=== PATIENT | male | born 1950 | race Caucasian/White ===

== ENCOUNTER 2016-12-24 07:31 | Inpatient (IN) | payer OTHER ==
--- NOTE | 2016-12-24 08:04 | CPEKG ---
Heart Rate: 115 RR Interval: 522 P-R Interval: 180 QRSD Interval: 82 QT Interval: 288 QTC Interval: 399 P [facility]: 46 QRS [facility]: 32 T Wave [facility]: 6 EKG Severity - BORDERLINE ECG - EKG Impression: SINUS TACHYCARDIA EKG Impression: CONSIDER INFERIOR INFARCT EKG Impression: BORDERLINE R WAVE PROGRESSION, ANTERIOR LEADS Electronically Signed By: Tevin Khan 24-Dec-2016 08:26:45
[2016-12-24] MEDS ORDERED: NS 1,000 ML IV ONE ×2 (08:09→09:25)
[2016-12-24] MEDS ORDERED: ACETAMINOPHEN 325 MG TAB PO ONE (08:15)
[2016-12-24] MEDS ORDERED: LETS SOLN TOPICAL 1 EA SYR TP ONE (08:16)
--- NOTE | 2016-12-24 08:21 | UCPHY ---
H & P Patient Type: Established Chief Complaint Nursing Narrative: Fever 3 days, falls yesterday and this am. Dehydration Time Seen by Provider: 12/24/16 07:53 HPI/ROS: This pt. presents with illness for 3 days with fevers, mild dry cough mild nasal congestion. He has also had chills. He was seen as per family practitioner's office on Thursday with the symptoms and tested negative for influenza. He was then given influenza immunization. He reports ongoing symptoms and over the past 24 hours his family notes that he has been intermittently mildly confused but then seems to improve after he drinks fluids. He has been unsteady on his feet and has had 4 falls over the past 24 hours. The family has not noticed any loss of consciousness during these falls. This morning at 5:00 a.m. while in his bathroom he again fell and struck his forehead with a laceration to his forehead. He reports associated fatigue. ROS: No other constitutional symptoms besides what is mentioned in HPI. HEENT: No sore throat. No ear pain. Neuro: Mild headache currently and intermittently over the past 3 days similar to previous headaches generalized location. No LOC with the fall. He reports feeling lightheaded prior to the fall is unclear if he lost his balance or had a brief syncopal episode. No bowel or bladder incontinence. No focal numbness tingling weakness. Pulmonary: No pleuritic pain. He reports mild shortness of breath. Cardiovascular: Has not noticed any heart palpitations or chest pain. GI: No belly pain. No nausea or vomiting. No diarrhea. : Mild dysuria. He thinks that is attributable to dehydration. No testicular pain or swelling. Musculoskeletal: No back pain or extremity injuries. Endocrine: He checks his blood glucose about once a week. He does remember what which day he last checked but was 115 recently. 10 point ROS is otherwise negative. Source: Patient, Family Exam Limitations: No limitations - Medical/Surgical History PMH: Hypertension Gmx-yixkdcc-ykyoyiket diabetes Hypercholesterolemia Hx Diabetes: Yes Other PMH: ortho/hernia/htn/hyper lipids - Family History Significant Family History: No pertinent family hx - Social History Smoking Status: Never smoked Alcohol Use: Occasionally Drug Use: None Additional Social History: The patient smokes cigars once or twice a week. 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 Vital signs are notable for fever to 38 centigrade, pulse of 114 respiratory rate around 20, 91% on room air blood pressure 103/73 General Appearance: Alert, no distress. Eyes: Pupils equal and round no pallor or injection. ENT,: Nose: Mild discharge bilaterally no tenderness. He has laceration to the forehead 3 cm in [id number]-[id number]. No foreign bodies present. Ears: External canals and TMs clear bilaterally. Mouth: Mucous membranes moist. No dental trauma. No tongue bite/intraoral lacerations Respiratory: Diminished breath sounds at the bases. No rales or rhonchi appreciated. No increased work of breathing. Cardiovascular: Tachycardic with no murmur gallop or rub Gastrointestinal: Abdomen is soft and nontender, no masses, bowel sounds normal. : No testicular tenderness Neurological: GCS of 15. No focal sensory or motor deficits are noted. Skin: Warm and dry, no rashes. Musculoskeletal: Neck is supple nontender. Extremities are symmetrical, full range of motion. Psychiatric: Mood and affect are normal. DIFFERENTIAL DIAGNOSIS: After history and physical exam differential diagnosis was considered for influenza, viral syndrome, pneumonia, dehydration, sepsis, mi , closed head injury, concussion Constitutional: Initial Vital Signs Temperature (C) 38.1 C 12/24/16 08:04 Heart Rate 114 H 12/24/16 08:04 Respiratory Rate 20 12/24/16 08:04 Blood Pressure 103/73 12/24/16 08:04 O2 Sat (%) 88 L 12/24/16 08:04 O2 Delivery Mode Nasal Cannula O2 (L/minute) 3.5 Allergies/Adverse Reactions: No Allergies [NKDA] Allergy (Verified 12/24/16 08:11) Home Medications: Medication Instructions Recorded Ambien Cr 10/09/14 CYCLOBENZAPRINE HCL [Flexeril] 5 mg PO TIDPRN PRN #15 tab 10/09/14 Lisinopril 10/09/14 Metformin HCl 10/09/14 Simvastatin 10/09/14 ASPIRIN 12/24/16 Fish Oil 12/24/16 ONGLYZA 12/24/16 Medical Decision Making - Diagnostics EKG Interpretation: 12 lead EKG performed at 801 reveals sinus tachycardia 115 Intervals: Normal throughout Vian: Normal throughout ST segments: Normal throughout Overall assessment sinus tachycardia with borderline anterior R-wave progression when compared to prior EKG dated 09/17/2010 no significant interval change by my interpretation. Imaging: Chest x-ray: Basilar atelectasis versus infiltrate on lateral view. Otherwise normal CT brain no contrast is normal per Dr. Esquivel-radiologist Procedures: The wound is 2.7 cm just above the eyebrow. Subcutaneous tissues evident but no deeper structures are injured. There is no underlying bony step-off The wound was copiously irrigated with saline. The wound was explored for foreign bodies and none were found. The wound was prepped and draped in the normal sterile fashion. The wound was anesthetized using let solution followed by 1% plain lidocaine mixed 50 50 with 0.5% Marcaine with good effect-4 mm. The edges were reapproximated using 5 0 Ethilon-11 running sutures with good hemostasis and cosmesis. The patient tolerated the procedure well. There were no complications. ED Course/Re-evaluation: IV normal saline bolus, monitor, blood cultures Patient presents with findings consistent with sepsis but responded well to normal saline bolus. Never hypotensive. She was ceftriaxone IV for urinary source. He may have early pneumonia as well versus atelectasis. He had associated waxing waning mild delirium by family's description over the past day or 2 and multiple falls complicating his course. I think the falls are secondary to orthostatic changes. He has had decreased p.o. intake as well over the past 48 hours by family's description. Venous lactate is normal. He does not have findings consistent with septic shock. After his marked clinical improvement with initial treatment I think he is safe for admission to the floor on O2 sat monitor. I think that his borderline hypoxia is attributable to his morbid obesity with obstructive component and bronchitis versus early pneumonia. He may have had a concussion from his fall. Ruled out intracranial injury with a negative head CT. He has a minor head injury here with a GCS of 15. No clinical evidence of neck injury or other associated injuries from his falls I spoke with mid-level with hospitalist group the patient will be admitted to Dr. Hernandez at [facility] I counseled patient and family regarding test results, diagnosis and plan for admission. The patient was initially hesitant to proceed with admission but is cooperative. - Data Points Laboratory Results: Laboratory Results 12/24/16 08:30 12/24/16 08:30 12/24/16 12/24/16 12/24/16 09:55 08:39 08:30 WBC RBC Hgb POC Hgb 17.7 gm/dL H gm/dL (14.5-17.3) Hct POC Hct 52 % H % (42.8-50.6) MCV MCH MCHC RDW Plt Count MPV Neut % (Auto) Lymph % (Auto) [place] % (Auto) Eos % (Auto) Baso % (Auto) Nucleat RBC Rel Count Absolute Neuts (auto) Absolute Lymphs (auto) Absolute Monos (auto) Absolute Eos (auto) Absolute Basos (auto) Absolute Nucleated RBC Immature Gran % Immature Gran # VBG Lactic Acid 1.6 mmol/L mmol/L (0.7-2.1) POC Sodium 130 mEq/L L mEq/L (134-144) Sodium POC Potassium 4.1 mEq/L mEq/L (3.3-5.0) Potassium POC Chloride 93 mEq/L L mEq/L (96-108) Chloride Carbon Dioxide Anion Gap POC BUN 22 mg/dL mg/dL (7-23) BUN Creatinine POC Creatinine 1.2 mg/dL mg/dL (0.8-1.5) Estimated GFR Glucose POC Glucose 174 mg/dL H mg/dL (70-100) Calcium Troponin I Urine Color YELLOW Urine Appearance HAZY Urine pH 6.0 (5.0-7.5) Ur Specific [place] <= 1.005 (1.002-1.030) Urine Protein 1+ H (NEGATIVE) Urine Ketones NEGATIVE (NEGATIVE) Urine Blood 3+ H (NEGATIVE) Urine Nitrate POSITIVE H (NEGATIVE) Urine Bilirubin NEGATIVE (NEGATIVE) Urine Urobilinogen 0.2 EU EU (0.2-1.0) Ur Leukocyte Esterase 2+ H (NEGATIVE) Urine RBC 10-15 /hpf H /hpf (0-3) Urine WBC >182 /hpf H /hpf (0-3) Ur Epithelial Cells TRACE /lpf /lpf (NONE-1+) Ur Renal Epithelial Cell OCCASIONAL /hpf H /hpf (NONE SEEN) Urine Bacteria 2+ /hpf H /hpf (NONE SEEN) Urine Mucus TRACE /lpf /lpf (NONE-1+) Ur Culture Indicated? INDICATED H (NI) Urine Glucose NEGATIVE (NEGATIVE) 12/24/16 12/24/16 08:30 08:30 WBC 8.51 10^3/uL 10^3/uL (3.80-9.50) RBC 5.54 10^6/uL 10^6/uL (4.40-6.38) Hgb 16.4 g/dL g/dL (13.7-17.5) POC Hgb Hct 47.5 % % (40.0-51.0) POC Hct MCV 85.7 fL fL (81.5-99.8) MCH 29.6 pg pg (27.9-34.1) MCHC 34.5 g/dL g/dL (32.4-36.7) RDW 13.2 % % (11.5-15.2) Plt Count 154 10^3/uL 10^3/uL (150-400) MPV 10.4 fL fL (8.7-11.7) Neut % (Auto) 82.0 % H % (39.3-74.2) Lymph % (Auto) 9.6 % L % (15.0-45.0) [place] % (Auto) 7.6 % % (4.5-13.0) Eos % (Auto) 0.0 % L % (0.6-7.6) Baso % (Auto) 0.2 % L % (0.3-1.7) Nucleat RBC Rel Count 0.0 % % (0.0-0.2) Absolute Neuts (auto) 6.97 10^3/uL H 10^3/uL (1.70-6.50) Absolute Lymphs (auto) 0.82 10^3/uL L 10^3/uL (1.00-3.00) Absolute Monos (auto) 0.65 10^3/uL 10^3/uL (0.30-0.80) Absolute Eos (auto) 0.00 10^3/uL L 10^3/uL (0.03-0.40) Absolute Basos (auto) 0.02 10^3/uL 10^3/uL (0.02-0.10) Absolute Nucleated RBC 0.00 10^3/uL 10^3/uL (0-0.01) Immature Gran % 0.6 % % (0.0-1.1) Immature Gran # 0.05 10^3/uL 10^3/uL (0.00-0.10) VBG Lactic Acid POC Sodium Sodium 128 mEq/L L mEq/L (134-144) POC Potassium Potassium 4.3 mEq/L mEq/L (3.5-5.2) POC Chloride Chloride 91 mEq/L L mEq/L (97-110) Carbon Dioxide 23 mEq/l mEq/l (22-31) Anion Gap 14 mEq/L mEq/L (8-16) POC BUN BUN 21 mg/dL mg/dL (7-23) Creatinine 1.1 mg/dL mg/dL (0.7-1.3) POC Creatinine Estimated GFR > 60 Glucose 168 mg/dL H mg/dL (70-100) POC Glucose Calcium 8.7 mg/dL mg/dL (8.5-10.4) Troponin I < 0.012 ng/mL ng/mL (0-0.034) Urine Color Urine Appearance Urine pH Ur Specific [place] Urine Protein Urine Ketones Urine Blood Urine Nitrate Urine Bilirubin Urine Urobilinogen Ur Leukocyte Esterase Urine RBC Urine WBC Ur Epithelial Cells Ur Renal Epithelial Cell Urine Bacteria Urine Mucus Ur Culture Indicated? Urine Glucose Medications Given: Discontinued Medications Acetaminophen (Tylenol) 975 mg PO EDNOW ONE Stop: 12/24/16 08:16 Last Admin: 12/24/16 08:49 Dose: 975 mg Sodium Chloride (Ns) 1,000 mls @ 0 mls/hr IV ONCE ONE PRN Reason: Wide Open Stop: 12/24/16 08:10 Last Admin: 12/24/16 08:30 Dose: 1,000 mls Sodium Chloride (Ns) 1,000 mls @ 0 mls/hr IV ONCE ONE PRN Reason: Wide Open Stop: 12/24/16 09:26 Last Admin: 12/24/16 09:50 Dose: 1,000 mls Ceftriaxone Sodium 1 gm/ (Sodium Chloride) 100 mls @ 200 mls/hr IV EDNOW ONE PRN Reason: Protocol Stop: 12/24/16 09:56 Last Admin: 12/24/16 10:11 Dose: 100 mls Tetracaine/Epinephrine/Lidocaine (Lets Soln Topical) 1 ea TP EDNOW ONE Stop: 12/24/16 08:17 Last Admin: 12/24/16 08:50 Dose: 1 ea Point of Care Test Results: 12/24/16 08:39 POC Sodium 130 L POC Potassium 4.1 POC Chloride 93 L POC BUN 22 POC Creatinine 1.2 POC Glucose 174 H Departure - Departure Disposition: [facility] Inpatient Acute Clinical Impression: Urosepsis Forehead laceration Qualifiers: Encounter type: initial encounter Qualified Code(s): S01.81XA - Laceration without foreign body of other part of head, initial encounter Condition: Serious Referrals: August Andrade MD [Primary Care Provider] - As per Instructions - PQRS PQRS Measurement: 134: Depression screening and followup, PRIME MD-PHQ2 (12 years and older) Over the last 2 weeks, how often have you been bothered by any of the following problems? 1. Feeling down, depressed, or hopeless? 2. Little interest or pleasure in doing things? Patient answered no to both 1 and 2 130: Documentation of medications. Reviewed all patient medications, doses, route and frequency. 226: Do you smoke? [No.] 47: 65 and older: Advanced care planning. Patient designates surrogate decision maker as spouse 51: 18 years old and older with diagnosis of COPD, spirometry performance. NA 52: 18 years old and older with COPD and symptoms of COPD or FEV1<60% predicted prescribed a B Agonist. NA
[2016-12-24 08:52] LABS: % IMMATURE GRANULYOCYTES 0.6 % (0.0-1.1); ABSOLUTE IMMATURE GRANULOCYTES 0.05 10^3/uL (0.00-0.10); ADD DIFF? NO; ADD MORPH? NO; ADD SCAN? NO; ATYPICAL LYMPHOCYTE FLAG 0 (0-99); FRAGMENT RBC FLAG 0 (0-99); HEMATOCRIT 47.5 % (40.0-51.0); HEMOGLOBIN 16.4 g/dL (13.7-17.5); LEFT SHIFT FLG 30 (0-99); LIPEMIA HEMOLYSIS FLAG 90 (0-99); MEAN CELL HEMOGLOBIN 29.6 pg (27.9-34.1); MEAN CELL HEMOGLOBIN CONCENTR. 34.5 g/dL (32.4-36.7); MEAN CELL VOLUME 85.7 fL (81.5-99.8); MEAN PLATELET VOLUME 10.4 fL (8.7-11.7); PLATELET CLUMPS FLAG 0 (0-99); PLATELET COUNT 154 10^3/uL (150-400); RED BLOOD CELL COUNT 5.54 10^6/uL (4.40-6.38); RED CELL DISTRIBUTION WIDTH 13.2 % (11.5-15.2)
[2016-12-24 09:02] LABS: ANION GAP 14 mEq/L (8-16); CALCIUM 8.7 mg/dL (8.5-10.4); CARBON DIOXIDE 23 mEq/l (22-31); CHLORIDE 91 mEq/L (97-110); CREATININE 1.1 mg/dL (0.7-1.3); GLOMERULAR FILTRATION RATE > 60; GLUCOSE 168 mg/dL (70-100); POTASSIUM 4.3 mEq/L (3.5-5.2); SODIUM 128 mEq/L (134-144)
[2016-12-24 09:15] LABS: TROPONIN I < 0.012 ng/mL (0-0.034)
[2016-12-24 10:04] LABS: COLOR YELLOW; LEUKOCYTE ESTERASE,URINE 2+ (NEGATIVE); NITRITE,URINE POSITIVE (NEGATIVE)
[2016-12-24 10:18] LABS: BACTERIA 2+ /hpf (NONE SEEN); MUCUS TRACE /lpf (NONE-1+); RENAL EPITHELIAL CELLS OCCASIONAL /hpf (NONE SEEN); WBC,URINE >182 /hpf (0-3)
[2016-12-24] MEDS ORDERED: ONDANSETRON 4 MG/2 ML VIAL IVP PRN (12:42)
[2016-12-24] MEDS ORDERED: ACETAMINOPHEN 325 MG TAB PO PRN (12:42)
[2016-12-24] MEDS ORDERED: MEPERIDINE 25 MG/ML SYR IVP PRN (12:43)
[2016-12-24] MEDS ORDERED: KETOROLAC 15 MG/1 ML SDV IVP ONE (12:44)
[2016-12-24] MEDS ORDERED: NS 1,000 ML IV SCH ×2 (12:45→20:15)
[2016-12-24 13:19] LABS: ALBUMIN 4.1 g/dL (3.5-5.0); BILIRUBIN,TOTAL 0.6 mg/dL (0.1-1.4); BILIRUBIN-CONJUGATED 0.6 mg/dL (0.0-0.5); TOTAL PROTEIN 7.7 g/dL (6.3-8.2)
--- NOTE | 2016-12-24 13:31 | GHP ---
[f rep st] HISTORY AND PHYSICAL DATE OF ADMISSION: 12/24/2016 CHIEF COMPLAINT: Fevers. HISTORY OF PRESENT ILLNESS: This is a 66-year-old male with history of type 2 diabetes and hypertension who presented to the Urgent Care this morning with fevers that began on Thursday. The patient has reported some pain with urination and urinary frequency. He has not taken his temperature at home, but subjectively he has felt like his fevers have been off and on. Yesterday, the patient became very weak and sustained a fall where he hit his head. He saw his family practitioner on Thursday where they assessed him for influenza, which was negative. For the past 24 hours, the patient has been noted to be more confused. His son has been giving him fluids by mouth, which seemed to help. At 5 o'clock this morning, he sustained another fall where he hit his head and lacerated his forehead. Once again, he was not noted to have any loss of consciousness. At the urgent care, the patient received 2 L of normal saline as well as a gram of ceftriaxone. Upon arrival to [address] [place] [address], the patient is having rigors and is tachycardic, in the 140s. PAST MEDICAL HISTORY: 1. Hypertension. 2. Type 2 diabetes mellitus. 3. Hyperlipidemia. PAST SURGICAL HISTORY: Hernia repair, shoulder surgery. HOME MEDICATIONS: Reviewed. Refer to deltamethod for details. ALLERGIES: No known drug allergies. SOCIAL HISTORY: He denies any alcohol, tobacco, or illicit drug use. FAMILY HISTORY: Reviewed and noncontributory. REVIEW OF SYSTEMS: Comprehensive 10-point review of systems was done and is negative except for as mentioned in HPI and below. CARDIOVASCULAR: Denies chest pain. PULMONARY: Denies shortness of breath or cough. ABDOMINAL/GI: Denies nausea, vomiting, diarrhea. : See HPI. PHYSICAL EXAM: VITAL SIGNS: Blood pressure 127/91, pulse of 102, respiratory rate 20, O2 saturation 94% on 3.5 L, temperature afebrile. GENERAL: Ill appearing. HEAD: Normocephalic, atraumatic. Eyes: PERRLA. Sclerae anicteric. MOUTH: Dry oral mucosa. NECK: Supple. No lymphadenopathy. CARDIOVASCULAR: Tachycardic. S1-S2. There is no JVD. There is no lower extremity edema. PULMONARY: The patient is tachypneic but not in acute respiratory distress. LUNGS: Otherwise clear without wheezes, rales, or rhonchi. No dullness to percussion. ABDOMEN: Soft, mildly distended. There is no guarding or rebound tenderness. Normoactive bowel sounds. EXTREMITIES: No clubbing or cyanosis. NEURO: Cranial nerves 2-12 grossly intact. No focal motor or sensory deficits. SKIN: Clear. No rashes. DIAGNOSTICS: WBC is 8.5, hemoglobin 16.4, hematocrit 47.5, platelets 154. Venous lactic acid was 1.6. Sodium was 130. Potassium 4.1, chloride 93, BUN 21 , creatinine 1.1. Glucose 168. Troponin was less than 0.012. UA: 1+ protein , 3+ blood, positive nitrites, 2+ leukocyte esterase. Head CT was reviewed and negative for acute hemorrhage, hydrocephalus, or mass effect. No evidence for infarction. Chest x-ray, which I visualized and personally interpreted, shows posterior basilar subsegmental atelectasis versus mild infiltrate. EKG: Sinus tachycardia. Rate 115 beats per minute. There is no ST-segment elevation. ASSESSMENT/PLAN: This is a 66-year-old male presenting with: 1. Sepsis from presumed urinary source without signs of severe sepsis or septic shock. Once again, during the time of my exam, after he was transferred from the urgent care, the patient is having rigors and a heart rate of 140. PLAN: We will repeat a lactic acid. We will also treat with 3rd liter of normal saline and give an extra gram of ceftriaxone. Blood cultures have been drawn, which will need to be monitored. The patient will be carefully watched for signs and symptoms of severe sepsis or septic shock. 2. Rigors. PLAN: Will trial p.r.n. Demerol. 3. Mild hyponatremia. PLAN: Will continue to monitor. 4. History of type 2 diabetes mellitus. PLAN: Monitor blood sugars a.c. and h.s. and continue patient's home medication regimen. 5. History of hypertension. Plan: Will hold his home dose of lisinopril in the setting of sepsis. The patient will be admitted to the hospital under inpatient status, given the severity of his illness. He is at moderate to high risk for venous thromboembolism and I have ordered low-molecular weight heparin for deep venous thrombosis prophylaxis as well as SCDs. ADDENDUM 13:55 Notified of elevated lactic acid of 5.1 Patient meets definition for severe sepsis plan -30cc/kg bolus ordered -repeat lactic acid in 4 hours Given the patients deterioration since transfer from urgent care I reevaluated the patient and documented in the severe sepsis order set. 40 minutes of critical care time was spent caring for this patient with severe sepsis /[id number]/MODL MTDD
[2016-12-24] MEDS ORDERED: NS 1,000 ML BAG *FOR SEPSIS ORDER SET ONLY IV ONE (13:50)
[2016-12-24 13:56] LABS: LACGHOST ORDER
[2016-12-24] MEDS ORDERED: D50W 25 GM/50 ML SYR IVP PRN (15:48)
[2016-12-24] MEDS: INSULIN LISPRO 100 UNIT/ML SC SCH (18:20)
[2016-12-24] MEDS: ASCORBIC ACID 500 MG TAB PO SCH (21:58)
[2016-12-24] MEDS: ATORVASTATIN CALCIUM 10 MG TAB PO SCH (21:59)
[2016-12-24] MEDS: ASPIRIN 81 MG CHEWABLE TAB PO SCH (21:59)
[2016-12-24] MEDS: ZOLPIDEM TARTRATE 5 MG TAB PO PRN (21:59)
[2016-12-25 05:54] LABS: HEMATOCRIT 44.1 % (40.0-51.0); MEAN CELL VOLUME 89.3 fL (81.5-99.8); RED BLOOD CELL COUNT 4.94 10^6/uL (4.40-6.38)
[2016-12-25 05:55] LABS: % IMMATURE GRANULYOCYTES 0.2 % (0.0-1.1); ABSOLUTE IMMATURE GRANULOCYTES 0.02 10^3/uL (0.00-0.10); ADD DIFF? NO; ADD MORPH? NO; ADD SCAN? NO; ATYPICAL LYMPHOCYTE FLAG 0 (0-99); FRAGMENT RBC FLAG 0 (0-99); LEFT SHIFT FLG 40 (0-99); LIPEMIA HEMOLYSIS FLAG 90 (0-99); MEAN CELL HEMOGLOBIN 30.4 pg (27.9-34.1); MEAN PLATELET VOLUME 10.3 fL (8.7-11.7); PLATELET CLUMPS FLAG 0 (0-99); PLATELET COUNT 140 10^3/uL (150-400); RED CELL DISTRIBUTION WIDTH 13.8 % (11.5-15.2)
[2016-12-25 06:09] LABS: ANION GAP 11 mEq/L (8-16); CALCIUM 8.4 mg/dL (8.5-10.4); CARBON DIOXIDE 21 mEq/l (22-31); CHLORIDE 108 mEq/L (97-110); CREATININE 0.9 mg/dL (0.7-1.3); GLOMERULAR FILTRATION RATE > 60; GLUCOSE 124 mg/dL (70-100); POTASSIUM 4.2 mEq/L (3.5-5.2); SODIUM 140 mEq/L (134-144)
[2016-12-25] MEDS: cefTRIAXone 2 GM in D5W 50 ML IV SCH (08:46)
[2016-12-25] MEDS: MULTIVITAMINS 1 EACH TAB PO SCH (08:48)
[2016-12-25] MEDS: ASCORBIC ACID 500 MG TAB PO SCH ×2 (08:48→20:12)
[2016-12-25] MEDS ORDERED: ENOXAPARIN 40 MG/0.4 ML SYR SC SCH (09:00)
[2016-12-25] MEDS: INSULIN LISPRO 100 UNIT/ML SC SCH ×3 (11:34→18:39)
--- NOTE | 2016-12-25 13:46 | HOSPPROG ---
Hospitalist Progress Note Assessment/Plan: Assessment: 66-year-old male presents with severe sepsis in the setting of urinary tract infection Plan: 1. Severe sepsis. Evidenced by sepsis-2 criteria including tachycardia with heart rate of 140, fever with a T-max of 38.8degrees, tachypnea with respiratory rate of 24, clear evidence of infection notably urinary source, evidence of end-organ failure notably venous lactic acid of 5.1, resulting in autonomic dysregulation in the setting of infection -status post IV fluids, empiric IV antibiotics -continue to monitor CBC 2. Urinary tract infection. Evidenced by positive urinalysis urine cultures and blood cultures both sent, no history of prior urinary tract infections or recent Arroyo catheter -complicated by definition in a man -day 2 of 7 of antibiotics, continue IV ceftriaxone -continue to monitor for an additional 24 hours to ensure that the patient did not become bacteremic in the setting of his severe infection which would ultimately culture his duration of treatment 3. Metabolic acidosis. Acute, secondary to lactic acid, secondary to above -status post IV fluids, corrected, can stop IV fluids now 4. Diabetes mellitus type 2. Hold patient's metformin, placed on insulin sliding scale Code. Full Diet. Regular Prophylaxis. High risk patient, Lovenox 40 Disposition. Anticipated discharge is 12/26/2016, pending availability of blood culture and urine culture results to assistg ongoing treatment. Subjective: Patient reports that he is ambulating well, working with therapy Objective: Vital Signs Temp Pulse Resp BP Pulse Ox 36.7 C 88 16 125/85 H 95 12/25/16 09:47 12/25/16 10:20 12/25/16 05:07 12/25/16 10:20 12/25/16 10:20 Laboratory Results 12/25/16 05:28 12/25/16 05:28 12/24/16 12/25/16 12/26/16 05:59 05:59 05:59 Intake Total 4250 540 Output Total 3050 300 Balance 1200 240 - Pending Discharge Pending Discharge Within 24 Hours: Yes Pending Discharge Date: 12/26/16 Pending Discharge Time: 11:00 - Physical Exam Constitutional: no apparent distress, not in pain, obese, No uncomfortable Cardiovascular: regular rate and rhythym, no murmur, rub, or gallop Respiratory: no respiratory distress, no rales or rhonchi, clear to auscultation Gastrointestinal: normoactive bowel sounds, soft, non-tender abdomen, no palpable masses Genitourinary: no bladder fullness, no bladder tenderness, other (No CVA tenderness to palpation), No arroyo in urethra Skin: other (Laceration over right eye without any surrounding erythema, no ecchymoses, no induration, no fluctuance) Neurologic: AAOx3, No weakness (Motor strength 5/5 bilaterally) Psychiatric: interacting appropriately, not anxious, not encephalopathic, thought process linear ICD10 Worksheet Patient Problems: Problems Problem Status Onset Forehead laceration Acute
[2016-12-25] MEDS: FLUTICASONE NASAL 120 SPRAYS/16 GM MDI EACHNARE PRN (17:16)
[2016-12-25] MEDS: metFORMIN SR 500 MG TAB PO SCH (17:16)
[2016-12-25] MEDS: CETIRIZINE 10 MG TAB PO SCH (17:18)
[2016-12-25] MEDS: guaiFENesin 600 MG TAB.ER PO SCH ×2 (17:22→22:59)
[2016-12-25] MEDS: ASPIRIN 81 MG CHEWABLE TAB PO SCH (20:12)
[2016-12-25] MEDS: ATORVASTATIN CALCIUM 10 MG TAB PO SCH (20:13)
[2016-12-25] MEDS: ENOXAPARIN 40 MG/0.4 ML SYR SC SCH (20:14)
[2016-12-25] MEDS: ZOLPIDEM TARTRATE 5 MG TAB PO PRN (21:56)
[2016-12-26 04:28] VITALS: PULSE 79
[2016-12-26 06:12] LABS: % IMMATURE GRANULYOCYTES 0.2 % (0.0-1.1); ABSOLUTE IMMATURE GRANULOCYTES 0.02 10^3/uL (0.00-0.10); ADD DIFF? NO; ADD MORPH? NO; ADD SCAN? NO; ATYPICAL LYMPHOCYTE FLAG 0 (0-99); FRAGMENT RBC FLAG 0 (0-99); HEMATOCRIT 44.2 % (40.0-51.0); HEMOGLOBIN 15.1 g/dL (13.7-17.5); LEFT SHIFT FLG 10 (0-99); LIPEMIA HEMOLYSIS FLAG 90 (0-99); MEAN CELL HEMOGLOBIN CONCENTR. 34.2 g/dL (32.4-36.7); MEAN CELL VOLUME 87.7 fL (81.5-99.8); MEAN PLATELET VOLUME 10.5 fL (8.7-11.7); PLATELET CLUMPS FLAG 0 (0-99); PLATELET COUNT 162 10^3/uL (150-400); RED BLOOD CELL COUNT 5.04 10^6/uL (4.40-6.38); RED CELL DISTRIBUTION WIDTH 13.9 % (11.5-15.2)
[2016-12-26 06:34] LABS: ANION GAP 12 mEq/L (8-16); CARBON DIOXIDE 20 mEq/l (22-31); CHLORIDE 106 mEq/L (97-110); CREATININE 0.9 mg/dL (0.7-1.3); GLOMERULAR FILTRATION RATE > 60; GLUCOSE 143 mg/dL (70-100); POTASSIUM 4.1 mEq/L (3.5-5.2); SODIUM 138 mEq/L (134-144)
[2016-12-26 07:41] VITALS: BP 142/96; RESP 18; TEMP 98.1; O2SAT 93
[2016-12-26] MEDS: INSULIN LISPRO 100 UNIT/ML SC SCH (08:12)
[2016-12-26] MEDS: guaiFENesin 600 MG TAB.ER PO SCH (08:13)
[2016-12-26] MEDS: ASCORBIC ACID 500 MG TAB PO SCH (08:23)
[2016-12-26] MEDS: MULTIVITAMINS 1 EACH TAB PO SCH (08:23)
[2016-12-26] MEDS: metFORMIN SR 500 MG TAB PO SCH (08:23)
[2016-12-26] MEDS: FLUTICASONE NASAL 120 SPRAYS/16 GM MDI EACHNARE PRN (08:24)
[2016-12-26] MEDS: ENOXAPARIN 40 MG/0.4 ML SYR SC SCH (08:24)
[2016-12-26] MEDS: cefTRIAXone 2 GM in D5W 50 ML IV SCH (08:27)
[2016-12-26] MEDS: CETIRIZINE 10 MG TAB PO SCH (08:27)
--- NOTE | 2016-12-26 12:57 | PDDCSUM ---
Discharge Summary Discharge Summary: DISCHARGE SUMMARY FOLLOW-UP ITEMS: Outpatient neurology follow-up appointment DATE OF ADMISSION: 12/24/2016 DATE OF DISCHARGE: 12/26/2016 DISCHARGE DIAGNOSES: 1. Severe sepsis 2. E coli urinary tract infection 3. Acute metabolic acidosis 4. Chronic diabetes mellitus type 2 5. Suspected BPH CONSULTATIONS: None PROCEDURES / IMAGING: None CHIEF COMPLAINT: Acute fatigue SUBJECTIVE: Patient reports 1 loose bowel movement, mild urinary urgency PHYSICAL EXAM ON DISCHARGE: Systolic blood pressure is 120-140, heart rate 70 to 80, afebrile overnight, satting well on room air, alert awake oriented x3 no apparent distress, obese male, no pain LABS ON DISCHARGE: Urine culture demonstrating pansensitive E coli, blood cultures no growth to date, creatinine 0.9, potassium 4.1 HOSPITAL COURSE BY PROBLEM: 1. Severe sepsis. Evidenced by sepsis-2 criteria including tachycardia, fever, tachypnea, clear evidence of infection, evidence of end-organ failure, resulting in autonomic dysregulation in the setting of infection. He received empiric IV fluids, empiric IV antibiotics. All of his markers of sepsis resolved and he is safe for discharge at this time. 2. E coli urinary tract infection. Evidenced by positive urinalysis with urine culture positive for pansensitive E coli. Most likely precipitating cause is undertreated BPH. Patient received 3 days of IV ceftriaxone and he began to experience what appeared to be antibiotic associated diarrhea. Consequently, I have adjusted him to ciprofloxacin 500 mg twice daily for an additional 7 days, total 10 days of antibiotic therapy for what is by definition a complicated urinary tract infection in a male. 3. Acute metabolic acidosis. Secondary to lactic acid, secondary to severe sepsis, status post IV fluids. 4. Chronic diabetes mellitus type 2. Patient's metformin was reintroduced and he tolerated it well. 5. Suspected BPH. Patient complains of urinary urgency and polyuria present chronically. This may be evidence of under treated BPH and the patient has seen Dr. Easley in the past. The patient will follow up with Dr. Easley within 1 week for further consideration of pharmacologic therapy as well as potentially urodynamic studies to determine any degree of retention. The patient is not currently retaining urine as he is able to urinate regularly. DISCHARGE MEDICATIONS: Please see official discharge medication reconciliation sheet in chart , ciprofloxacin 500 mg twice daily x7 days. DISCHARGE INSTRUCTIONS: Please follow up with Dr. Easley next week as well as her primary care provider. TIME SPENT: Greater than 30 minutes were spent on direct patient care, as well as discharge planning and preparation.
[2016-12-31] MEDS ORDERED: TESTOSTERONE IM 100 MG/ML SYRINGE IM SCH (09:00)
== END 2016-12-26 13:16 | disposition home or self-care (01) | DRG 872 ==
LOC: CED 07:31 → CEDHOLD 10:38 → F1N 12:32
PROVIDERS: ADMIT Hospitalist; ATTEND Internal Medicine
PROC: 0HQ1XZZ Repair Face Skin, External Approach (ICD-10-PCS; principal; 2016-12-24)
DX: A41.51 Sepsis due to Escherichia coli [E. coli] (principal); N39.0 Urinary tract infection, site not specified; N40.1 Benign prostatic hyperplasia with lower urinary tract symptoms; S01.81XA Laceration without foreign body of other part of head, initial encounter; R39.15 Urgency of urination; R35.8 Other polyuria; E87.2 Acidosis; I10 Essential (primary) hypertension; E11.9 Type 2 diabetes mellitus without complications; E78.5 Hyperlipidemia, unspecified; W01.190A Fall on same level from slipping, tripping and stumbling with subsequent striking against furniture, initial encounter; Y92.012 Bathroom of single-family (private) house as the place of occurrence of the external cause
CPT/HCPCS: 70450-PO; 71020-PO; 80048-PO; 81003-PO; 81015-PO; 82947-QW; 83605-PO; 84484-PO; 85025-PO; 96361-PO; 96365-PO; 97161-GP; 97165-GO; G0463-PO; J0696; J1650; J1815; J1885

== ENCOUNTER → 2017-05-14 | Outpatient (CLI) | payer OTHER | LOC: FIMAGING 13:18 | PROVIDERS: ATTEND Urology | DX: N23 Unspecified renal colic (principal); Z98.890 Other specified postprocedural states ==

== ENCOUNTER 2017-09-13 12:05 | Emergency (ER) | payer OTHER ==
[2017-09-13 12:11] VITALS: PULSE 84; RESP 18; TEMP 97.5
--- NOTE | 2017-09-13 12:53 | EDPHY ---
H & P Time Seen by Provider: 09/13/17 12:17 HPI/ROS: CHIEF COMPLAINT: Right calf pain HISTORY OF PRESENT ILLNESS: 67-year-old male presents with a 2 day history of right calf pain. Onset of calf pain 2 days ago, without obvious inciting factor. The pain is moderate and aggravated by walking. Sent to the ED by his PCP, Dr. Andrade, to rule out DVT No chest pain or shortness of breath. REVIEW OF SYSTEMS: Constitutional: No fever Eyes: No visual changes ENT: No sore throat Respiratory: No cough, no shortness of breath Cardiac: No chest pain Gastrointestinal: no vomiting, no abdominal pain Genitourinary: No hematuria, no dysuria Skin: No rash Neurological: No headache, no weakness Psychiatric: No depression Past Medical/Surgical History: Hypertension Right hip pain Social History: PCP: Dr. Andrade no recent alcohol Smoking Status: Current some day smoker Physical Exam: General Appearance: Alert, pleasant Eyes: Pupils equal and round, no conjunctival pallor ENT, Mouth: Mucous membranes moist Neck: Normal inspection Respiratory: Lungs are clear to auscultation Cardiovascular: Regular rate and rhythm Gastrointestinal: Abdomen is soft and nontender Neurological: A&O, nonfocal exam Skin: Warm and dry Extremities: right calf-normal inspection, no swelling, tender posteriorly Psychiatric: Mood and affect normal Constitutional: Initial Vital Signs Temperature (C) 36.4 C 09/13/17 12:07 Heart Rate 84 09/13/17 12:07 Respiratory Rate 18 09/13/17 12:07 Blood Pressure 129/89 H 09/13/17 12:07 O2 Sat (%) 95 09/13/17 12:07 O2 Delivery Mode Room Air Allergies/Adverse Reactions: No Allergies [NKDA] Allergy (Verified 09/13/17 12:07) Home Medications: Medication Instructions Recorded Lisinopril [Zestril 10 mg (*)] 10 mg PO DAILY 10/09/14 Simvastatin [Zocor] 20 mg PO HS 10/09/14 ZOLPIDEM TARTRATE [Ambien CR 12.5 12.5 mg PO HS 10/09/14 mg] metFORMIN HCL [Metformin HCl ER] 500 mg PO BID 10/09/14 Aspirin [Aspirin 81mg (*)] 162 mg PO HS 12/24/16 Saxagliptin HCl [Onglyza] 5 mg PO DAILY 12/24/16 Testosterone Cypionate 60 mg IM WE@09 12/24/16 Medical Decision Making - Diagnostics Imaging Results: Imaging Impressions Extremity Venous Study 09/13/17 12:18 Impression: There is no sonographic evidence of deep or superficial vein thrombosis in the right lower extremity, with the caveat that the paired peroneal veins are too deep to visualize. Should the patient have progression of his symptoms, short-term repeat sonography could be considered. Findings were discussed with NNAMDI FOSTER MD at 14:23, on 09/13/2017. ED Course/Re-evaluation: This patient presents with right calf pain. There is no swelling in the calf and I have low suspicion for DVT. Ultrasound ordered per his doctor's request. Ultrasound results reveal no evidence of DVT, but unable to visualize the peroneal veins well. Given low suspicion for DVT, Ifeel that I can safely d/c him home. If sx persist/worsen, suggest repeat sono. Differential Diagnosis: Differential diagnosis includes though it is not limited to fracture, dislocation, tendon disruption, neurovascular compromise. Departure - Departure Disposition: Home, Routine, Self-Care Clinical Impression: Pain in right leg Condition: Good Instructions: Leg Pain (ED) Additional Instructions: Ibuprofen 600 mg 3 times daily while the pain persists. We do not see a blood clot in your leg. However, we cannot see all of the veins in your calf. If you have persistent or worsening symptoms, please follow up with Dr. Andrade. You may need a repeat ultrasound. Referrals: August Andrade MD [Primary Care Provider] - As per Instructions
[2017-09-13 15:03] VITALS: BP 124/77; O2SAT 93
== END 2017-09-13 15:02 | disposition home or self-care (01) ==
DX: M79.604 Pain in right leg (principal); I10 Essential (primary) hypertension; F17.200 Nicotine dependence, unspecified, uncomplicated; Z79.84 Long term (current) use of oral hypoglycemic drugs; Z79.82 Long term (current) use of aspirin